=== PATIENT | female | born 1945 | race Caucasian/White ===

== ENCOUNTER → 2018-05-02 | Day surgery (SDC) | payer OTHER, BC ==
[2018-04-28 08:23] VITALS: BMI 24.0
[~2018-05-02] VITALS: Ht 160 cm; Wt 61.8 kg
[~2018-05-02] MED LIST: ASPI81TA28 PO; BUSP5TAB59 PO; CHOL2000 PO; CLR10 PO; FLUT0.15 NAE; LIDOCAINE HCL 2% 2 ML VIAL (20MG/ML) ONE; MELATAB2 PO; MULTTAB58 PO; OMEG500C2 PO; PRLSR20 PO; PROB1TAB16 PO; PROPOFOL IV EMULSION 10 MG/ML 20 ML VIAL ONE; SODIUM CHLORIDE 0.9% 500ML 500 ML IV ONE
[2018-05-02 08:39] VITALS: Ht 160 cm; Wt 61.8 kg
--- NOTE | 2018-05-02 09:05 | Endo History and Physical ---
History & Physical Date of Service: May 02, 2018. Chief Complaint: DYSPHAGIA BARRETTS Referring Physician: ALVIN COVARRUBIAS History of Present Illness 72 yo CF who presents for EGD secondary to dysphagia and Suarez's esophagus. Past Surgical History Hx Cardiac Surgery: No Hx Internal Defibrillator: No Hx Pacemaker: No Hx Abdominal Surgery: Yes (APPY, LAP RAMIN, TUBAL LIGATION, BHARAT BSO) Hx of Implantable Prosthesis: No Hx Post-Op Nausea and Vomiting: No Hx Cancer Surgery: No Hx Thoracic Surgery: No Hx Orthopedic: Yes (R SHOULDER ARTHROSCOPY) Hx Urinary Tract Surgery: Yes (BLADDER SX) Family History None Social History Smoking Status: Never Smoker Hx Substance Use: No Hx Alcohol Use: No Allergies Coded Allergies: Sulfa Antibiotics (Verified Allergy, Severe, URINATED BLOOD, 05/02/18) Sulfate (Verified Allergy, Intermediate, LIPS SWELL, 05/02/18) Uncoded Allergies: PRESERVATIVES (Allergy, Mild, RASH AND SWELLING, 04/28/18) Current Medications Reported Home Medications Medications Dose Route/Sig Max Daily Dose Days Date Category Claritin (Loratadine) 10 Mg Tab 10 Mg PO DAILY 05/02/18 Reported Buspirone Hcl 5 Mg Tab 1 Tab PO DAILY 04/28/18 Reported Vitamin D3 (Cholecalciferol) 2,000 Unit Cap 1 Cap PO DAILY 04/28/18 Reported Probiotic (Probiotic Product) 1 Tab Tab 1 Tab PO DAILY 04/28/18 Reported Prilosec (Omeprazole) 20 Mg Capcr 20 Mg PO QAM 04/28/18 Reported Multivitamin (Multiple Vitamin) 1 Tab Tab 1 Tab PO DAILY 04/28/18 Reported Melatonin Maximum Strengt (Melatonin) 5 Mg Tab 1 Tab PO HS 04/28/18 Reported Fish Oil ([place]-3 Fatty Acids) 500 Mg Cap 1 Cap PO QAM 04/28/18 Reported Aspirin Ec (Aspirin) 81 Mg Tab 81 Mg PO QAM 04/28/18 Reported Vital Signs Weight (Kilograms): 61.82 Height (Feet): 5 Height (Inches): 3 Date Time Temp Pulse Resp B/P (MAP) Pulse Ox O2 Delivery O2 Flow Rate FiO2 05/02/18 08:46 36.8 64 20 146/71 (96) 97 Room Air Physical Exam General Appearance: WD/WN, no apparent distress Respiratory/Chest: Auscultation: breath sounds normal Cardiovascular: Heart Auscultation: RRR Abdomen: Bowel Sounds: normal Inspection & Palpation: soft, non-distended, no tenderness, guarding & rebound Assessment and Plan Assessment: 72 yo CF who presents for EGD secondary to dysphagia and Suarez's esophagus. Plan: Proceed with EGD.
--- NOTE | 2018-05-02 09:28 | GI REPORT ---
Patient Name: Geni Guardado Procedure Date: 05/02/2018 8:53 AM Date of : 1945 Admit Type: Outpatient Age: 72 Gender: Female Attending MD: Richard Gerard DO Procedure: Upper GI endoscopy Providers: Richard Gerard DO Referring MD: Yuko Serrano Indications: Dysphagia, Follow-up of Suarez's esophagus Medicines: Monitored Anesthesia Care Complications: No immediate complications. Estimated Blood Loss: Estimated blood loss: none. Procedure: Pre-Anesthesia Assessment: - Prior to the procedure, a History and Physical was performed, and patient medications and allergies were reviewed. The patient's tolerance of previous anesthesia was also reviewed. The risks and benefits of the procedure and the sedation options and risks were discussed with the patient. All questions were answered, and informed consent was obtained. Prior Anticoagulants: The patient has taken aspirin, last dose was 1 day prior to procedure. ASA Grade Assessment: III - A patient with severe systemic disease. After reviewing the risks and benefits, the patient was deemed in satisfactory condition to undergo the procedure. After obtaining informed consent, the endoscope was passed under direct vision. Throughout the procedure, the patient's blood pressure, pulse, and oxygen saturations were monitored continuously. The scope was introduced through the mouth, and advanced to the second part of duodenum. The upper GI endoscopy was accomplished without difficulty. The patient tolerated the procedure well. Findings: There were esophageal mucosal changes consistent with short-segment Suarez's esophagus present at the gastroesophageal junction. The maximum longitudinal extent of these mucosal changes was 2 cm in length. Mucosa was biopsied with a cold forceps for histology. One specimen bottle was sent to pathology. A small hiatal hernia was present. The examined duodenum was normal. Impression: - Esophageal mucosal changes consistent with short-segment Suarez's esophagus. Biopsied. - Small hiatal hernia. - Normal examined duodenum. Recommendation: - Resume previous diet. - Continue present medications. - Await pathology results. - Return to primary care physician as previously scheduled. Richard Gerard DO 05/02/2018 9:27:30 AM This report has been signed electronically. Note Initiated On: 05/02/2018 8:53 AM Number of Addenda: 0 I attest to the content of the Intraoperative Record and orders documented therein, exceptions below {[id number]}
--- NOTE | 2018-05-02 09:31 | Discharge Instructions ---
Endoscopy Patient Instructions Date / Procedure(s) Performed May 02, 2018. EGD Allergy Information Coded Allergies: Sulfa Antibiotics (Verified Allergy, Severe, URINATED BLOOD, 05/02/18) Sulfate (Verified Allergy, Intermediate, LIPS SWELL, 05/02/18) Uncoded Allergies: PRESERVATIVES (Allergy, Mild, RASH AND SWELLING, 04/28/18) Discharge Date / Findings May 02, 2018. Suarez's Esophagus s/p biopsies Hiatal hernia Medication Instructions Assessment: 79 CF who presents for EGD secondary to painful swallowing and GERD. Plan: Proceed with EGD. Provider Instructions Activity Restrictions - No exercising or heavy lifting for 24 hours. - Do not drink alcohol the day of the procedure. - Do not drive a car or operate machinery until the day after the procedure. - Do not make any important decisions or sign important papers in 24 hours after the procedure. Following Day: - Return to full activity which may include returning to work/school. Diet Start your diet with liquids and light foods (jello, soup, juice, toast). Then eat your usual diet if not nauseated. Treatment For Common After Affects For mild abdominal pain, bloating, or excessive gas: - Rest - Eat lightly - Lie on right side Follow-Up Information Follow-up with ALVIN COVARRUBIAS as scheduled Anesthesia Information What You Should Know You have had a procedure that required some medicine to reduce anxiety and discomfort. This treatment is called moderate sedation. After receiving the treatment, you may be sleepy, but you will be able to breathe on your own. The effects of the treatment may last for several hours. Follow these instructions along with Activity/Diet recommendations noted above: * Do NOT do anything where dizziness or clumsiness would be dangerous. * Rest quietly at home today, then you can be up and about tomorrow. * Have a responsible person stay with you the rest of today. * You may have had an I.V. today. If so, you may take the dressing off later today. Recommendations Call your doctor if: * Trouble breathing * Continuous vomiting for more than 24 hours * Temperature above 101 degrees * Severe abdominal pain or bloating * Pain not relieved by pain medicine ordered * There is increased drainage or redness from any incision * A large amount of rectal bleeding greater than 2-3 tablespoons. (If you had a polyp/s removed or have hemorrhoids, a small amount of blood - from the rectum is to be expected.) * You have any unanswered questions or concerns. IN THE EVENT OF A SERIOUS EMERGENCY, GO TO THE NEAREST EMERGENCY ROOM Your discharge instructions were prepared by provider Richard Gerard. Patient Instructions Signature Page Geni Guardado Patient (or Guardian) Signature/Date: I have read and understand the instructions given to me by my caregivers. Caregiver/RN/Doctor Signature/Date: The above-named patient and/or guardian has received patient instructions on this date. + Original Patient Signature Page (only) stays with chart. Please make copy for patient.
[2018-05-02 09:55] VITALS: BP 148/67; PULSE 60; O2SAT 96
--- NOTE | 2018-05-02 11:25 | Anesthesiology Progress Note ---
Anesthesia Post Op Note Date & Time May 02, 2018 at 11:25 Vital Signs Pain Intensity: 0 Vital Signs Past 12 Hours Date Time Temp Pulse Resp B/P (MAP) Pulse Ox O2 Delivery O2 Flow Rate FiO2 05/02/18 09:55 60 18 148/67 (94) 96 Room Air 05/02/18 09:40 65 18 147/66 (93) 95 Room Air 05/02/18 09:25 65 16 90/48 (62) 95 Room Air 05/02/18 08:46 36.8 64 20 146/71 (96) 97 Room Air Notes Mental Status: alert / awake / arousable, participated in evaluation Pt Amnestic to Procedure: Yes Nausea / Vomiting: adequately controlled Pain: adequately controlled Airway Patency, RR, SpO2: stable & adequate BP & HR: stable & adequate Hydration State: stable & adequate Anesthetic Complications: no major complications apparent
== END | disposition home or self-care (01) ==
LOC: C.GI 08:08
PROVIDERS: ATTEND Internal Medicine
DX: R13.10 Dysphagia, unspecified (principal); K44.9 Diaphragmatic hernia without obstruction or gangrene; K22.70 Barrett's esophagus without dysplasia; K21.9 Gastro-esophageal reflux disease without esophagitis; M19.90 Unspecified osteoarthritis, unspecified site; F41.9 Anxiety disorder, unspecified; Z88.2 Allergy status to sulfonamides; Z79.82 Long term (current) use of aspirin; Z86.19 Personal history of other infectious and parasitic diseases